=== PATIENT | male | born 1955 | race Caucasian/White ===

== ENCOUNTER 2016-07-07 23:27 | Emergency (ER) | payer OTHER ==
[~2016-07-07] VITALS: Ht 185.4 cm; Wt 175.0 kg
[~2016-07-07 23:27] MED LIST: ACETAMINOPHEN500 MG PO; ASPIR-LOW81 MG PO; COUMADIN5 MG PO; ENALAPRIL MALEA10 MG PO; ENALAPRIL MALEA20 MG PO; FOCALIN5 MG PO; FUROSEMIDE40 MG PO; GLIPIZIDE10 MG PO; LANTUS 10100 UNITS/ SC; LANTUS 3 M100 UNITS1 SC; LASIX40 MG PO; LEVAQUIN750 MG PO; METFORMIN HCL500 MG PO; METOPROLOL TART25 MG PO; OMEPRAZOLE20 MG PO; PACERONE200 MG PO; PERCOCET 5/31 TABLET PO; PLAVIX75 MG PO; PRAVASTATIN SOD80 MG PO; SPIRIVA1 INHALATI IH; SYMBICORT60 INHALAT IH; TEMAZEPAM30 MG PO; TRAMADOL HCL50 MG PO; TRAZODONE HCL100 MG PO; WARFARIN SODIUM5 MG PO
[2016-07-08 00:38] LABS: HEMATOCRIT 40.6 % (38.0-50.0); MCHC 32.8 G/DL (30.0-36.0); MCV 85.5 FL (86-99); PLATELET COUNT 189 K/uL (156-360); RBC DIS.WIDTH-CV 13.7 % (11.8-14.6); RBC DIS.WIDTH-SD 42.2 % (39-53); RED BLOOD COUNT 4.75 M/uL (4.00-5.50); WHITE BLOOD COUNT 6.8 K/uL (4.1-10.2)
[2016-07-08 00:49] LABS: CHLORIDE 102 mEq/L (99-109); POTASSIUM 4.3 mEq/L (3.7-5.4); SODIUM 137 mEq/L (136-147)
[2016-07-08 00:50] LABS: GLUCOSE 178 mg/dL (70-99)
[2016-07-08 00:52] LABS: ANION GAP 7 MEQ/L (2-14)
[2016-07-08 00:54] LABS: D-DIMER ELISA 1.24 mg/L FEU (< 0.57); GFR ESTIMATE (CALCULATED) > 59 mL/min/; INTER. NORMALIZED RATIO 2.3; PROTHROMBIN TIME 23.6 (9.2-11.2); PTT 37.4 (25-32)
[2016-07-08 00:55] LABS: UREA NITROGEN (BUN) 9 mg/dL (9-23)
[2016-07-08 01:02] LABS: TROP-I INTERPRETATION NEGATIVE; TROPONIN-I < 0.01 ng/mL (0.0-0.30)
[2016-07-08 02:20] LABS: INFLUENZA A VIRAL ANTIGEN NEGATIVE; INFLUENZA B VIRAL ANTIGEN NEGATIVE
[2016-07-08 02:23] LABS: ADD MIUA? YES; BILIRUBIN NEGATIVE; BLOOD TRACE; COLOR YELLOW ((YELLOW)); GLUCOSE (STRIP) 100; KETONES NEGATIVE; LEUKOCYTES NEGATIVE; NITRITE NEGATIVE; PROTEIN (STRIP) >=300; SPECIFIC GRAVITY 1.016 (1.000-1.030)
[2016-07-08 02:36] LABS: BACTERIA NONE SEEN; CASTS NONE SEEN /LPF; CRYSTALS NONE SEEN; EPITHELIAL CELLS RARE; MUCUS NONE SEEN; RED BLOOD CELLS 0-5 /HPF (0-5); UCUL ADDED? NO; WHITE BLOOD CELLS RARE /HPF (0-5)
[2016-07-08 06:30] VITALS: BP 116/59
== END 2016-07-08 07:37 | disposition short-term general hospital (02) ==
LOC: EME → EDBD 23:27 → EME 07-08 07:37
PROVIDERS: Emergency Medicine
DX: J44.0 Chronic obstructive pulmonary disease with (acute) lower respiratory infection (principal); J44.1 Chronic obstructive pulmonary disease with (acute) exacerbation; J20.9 Acute bronchitis, unspecified; E11.9 Type 2 diabetes mellitus without complications; F17.200 Nicotine dependence, unspecified, uncomplicated; E78.5 Hyperlipidemia, unspecified; I11.0 Hypertensive heart disease with heart failure; I25.2 Old myocardial infarction; I50.9 Heart failure, unspecified; Z95.1 Presence of aortocoronary bypass graft; Z88.6 Allergy status to analgesic agent
CPT/HCPCS: 71020; 71275; 80048; 81003; 83605; 83880; 84484; 85027; 85379; 85610; 85730; 87040; 87502; 93005; 94640; 94640 76; 99281; 99284; J1956; J2930

== ENCOUNTER 2016-11-08 21:46 | Observation (INO) | payer OTHER ==
[~2016-11-08] VITALS: Ht 185.4 cm; Wt 173.6 kg
[2016-11-08 22:17] LABS: HEMATOCRIT 41.1 % (38.0-50.0); MCH 27.3 PG (29.0-34.0); MCHC 32.6 G/DL (30.0-36.0); MCV 83.9 FL (86-99); MEAN PLAT.VOLUME 9.8 uM^3 (9.0-12.4); PLATELET COUNT 224 K/uL (156-360); RBC DIS.WIDTH-CV 13.8 % (11.8-14.6); RBC DIS.WIDTH-SD 42.3 % (39-53); WHITE BLOOD COUNT 7.7 K/uL (4.1-10.2)
[2016-11-08 22:29] LABS: CHLORIDE 103 mEq/L (99-109); POTASSIUM 4.3 mEq/L (3.7-5.4); SODIUM 139 mEq/L (136-147)
[2016-11-08 22:31] LABS: GLUCOSE 182 mg/dL (70-99)
[2016-11-08 22:32] LABS: ANION GAP 11 MEQ/L (2-14)
[2016-11-08 22:35] LABS: GFR ESTIMATE (CALCULATED) > 59 mL/min/
[2016-11-08 22:36] LABS: UREA NITROGEN (BUN) 10 mg/dL (9-23)
[2016-11-08 22:39] LABS: TROP-I INTERPRETATION NEGATIVE; TROPONIN-I 0.01 ng/mL (0.0-0.30)
[2016-11-08 23:47] LABS: INTER. NORMALIZED RATIO 2.8; PROTHROMBIN TIME 29.9 (9.2-11.2)
[2016-11-09] MEDS ORDERED: CYANOCOBALAM1000 MCG PO (00:03)
[2016-11-09] MEDS ORDERED: LO-DOSE ASPIRIN81 M2 PO (00:03)
[2016-11-09] MEDS ORDERED: TAMSULOSIN HCL0.4 MG PO (00:04)
[2016-11-09 00:28] LABS: D-DIMER ELISA 0.58 mg/L FEU (< 0.57)
[2016-11-09 02:14] LABS: TOTAL BILIRUBIN 0.2 mg/dL (0.0-1.0)
[2016-11-09 02:15] LABS: ALKALINE PHOSPHATASE 62 IU/L (3-129)
[2016-11-09 02:18] LABS: DIRECT BILIRUBIN 0.1 mg/dL (0.0-0.3)
[2016-11-09 02:19] LABS: LIPASE 20 U/L (1.0-51.0)
[2016-11-09 02:20] VITALS: BP 130/66
[2016-11-09 03:55] LABS: POINT-OF-CARE METER ID UU14174216
[2016-11-09 06:08] LABS: HEMATOCRIT 39.8 % (38.0-50.0); MCH 26.7 PG (29.0-34.0); MCHC 31.4 G/DL (30.0-36.0); MCV 84.9 FL (86-99); MEAN PLAT.VOLUME 9.9 uM^3 (9.0-12.4); PLATELET COUNT 224 K/uL (156-360); RBC DIS.WIDTH-CV 13.8 % (11.8-14.6); RBC DIS.WIDTH-SD 42.9 % (39-53); RED BLOOD COUNT 4.69 M/uL (4.00-5.50); WHITE BLOOD COUNT 7.5 K/uL (4.1-10.2)
[2016-11-09 06:37] LABS: TROP-I INTERPRETATION NEGATIVE; TROPONIN-I 0.02 ng/mL (0.0-0.30)
[2016-11-09 06:40] LABS: ANION GAP 9 MEQ/L (2-14); CHLORIDE 99 MEQ/L (99-109); GFR ESTIMATE (CALCULATED) > 59 mL/min/; GLUCOSE 352 mg/dL (70-99); POTASSIUM 5.1 MEQ/L (3.7-5.4); SAMPLE HEMOLYSIS CHECK 0; SAMPLE ICTERIC CHECK 0; SAMPLE LIPEMIA CHECK 0; SODIUM 137 MEQ/L (136-147); UREA NITROGEN (BUN) 13 mg/dL (9-23)
[2016-11-09 07:29] LABS: POINT-OF-CARE METER ID UU13113781
[2016-11-09 08:15] VITALS: BP 139/62
[2016-11-09 08:34] VITALS: BP 122/56
[2016-11-09 11:10] LABS: POINT-OF-CARE METER ID UU13113781
[2016-11-09 11:49] LABS: TROP-I INTERPRETATION NEGATIVE; TROPONIN-I < 0.01 ng/mL (0.0-0.30)
[2016-11-09 12:04] VITALS: BP 158/70
[2016-11-09 15:30] VITALS: BP 129/60
== END 2016-11-09 15:30 | disposition home or self-care (01) ==
LOC: EME → EDBD 21:46 → EDOF 11-09 01:12 → 4EAST 11-09 01:12 → EDOF 11-09 01:12 → 4EAST 11-09 02:20
PROVIDERS: Emergency Medicine; Hospitalist; Internal Medicine
DX: R07.89 Other chest pain (principal); I25.10 Atherosclerotic heart disease of native coronary artery without angina pectoris; Z95.1 Presence of aortocoronary bypass graft; I25.2 Old myocardial infarction; I48.0 Paroxysmal atrial fibrillation; Z79.01 Long term (current) use of anticoagulants; I10 Essential (primary) hypertension; E66.01 Morbid (severe) obesity due to excess calories; G47.30 Sleep apnea, unspecified; G89.4 Chronic pain syndrome; G43.909 Migraine, unspecified, not intractable, without status migrainosus; E78.5 Hyperlipidemia, unspecified; J44.9 Chronic obstructive pulmonary disease, unspecified; F17.200 Nicotine dependence, unspecified, uncomplicated; Z68.43 Body mass index [BMI] 50.0-59.9, adult; Z96.651 Presence of right artificial knee joint
CPT/HCPCS: 71020; 71275; 80048; 80076; 82948; 83690; 83880; 84484; 85027; 85379; 85610; 93005; 94640; 94644; 94799; 99281; 99285; G0378; J1815; J1940; J2270; J2405; J2930

== ENCOUNTER 2017-01-30 22:55 | Observation (INO) | payer OTHER ==
[~2017-01-30] VITALS: Ht 185.4 cm; Wt 170.5 kg
[~2017-01-30 22:55] MED LIST changes: +CYANOCOBALAM1000 MCG PO; +LO-DOSE ASPIRIN81 M2 PO; +TAMSULOSIN HCL0.4 MG PO
[2017-01-30 23:31] LABS: HEMATOCRIT 34.8 % (38.0-50.0); MCH 26.7 PG (29.0-34.0); MCHC 31.6 G/DL (30.0-36.0); MCV 84.5 FL (86-99); MEAN PLAT.VOLUME 9.9 uM^3 (9.0-12.4); PLATELET COUNT 183 K/uL (156-360); RBC DIS.WIDTH-CV 14.5 % (11.8-14.6); RBC DIS.WIDTH-SD 44.4 % (39-53); RED BLOOD COUNT 4.12 M/uL (4.00-5.50); WHITE BLOOD COUNT 7.2 K/uL (4.1-10.2)
[2017-01-30 23:43] LABS: CHLORIDE 104 mEq/L (99-109); POTASSIUM 4.1 mEq/L (3.7-5.4); SODIUM 140 mEq/L (136-147)
[2017-01-30 23:45] LABS: GLUCOSE 153 mg/dL (70-99)
[2017-01-30 23:46] LABS: ANION GAP 9 MEQ/L (2-14)
[2017-01-30 23:48] LABS: GFR ESTIMATE (CALCULATED) > 59 mL/min/
[2017-01-30 23:49] LABS: UREA NITROGEN (BUN) 10 mg/dL (9-23)
[2017-01-31 00:08] LABS: TROP-I INTERPRETATION NEGATIVE; TROPONIN-I < 0.01 ng/mL (0.0-0.30)
[2017-01-31 06:53] LABS: TROP-I INTERPRETATION NEGATIVE; TROPONIN-I 0.02 ng/mL (0.0-0.30)
[2017-01-31 07:20] VITALS: BP 190/82
[2017-01-31 08:27] LABS: INTER. NORMALIZED RATIO 1.4; PROTHROMBIN TIME 15.9 SEC (10.2-12.9)
[2017-01-31 11:41] VITALS: BP 133/97
[2017-01-31 12:24] LABS: POINT-OF-CARE METER ID UU14162513
[2017-01-31 12:43] LABS: TROP-I INTERPRETATION NEGATIVE; TROPONIN-I 0.02 ng/mL (0.0-0.30)
[2017-01-31 15:28] VITALS: BP 112/54
[2017-01-31 17:04] LABS: POINT-OF-CARE METER ID UU14162513
[2017-01-31 19:40] VITALS: BP 135/60
[2017-01-31 21:32] LABS: POINT-OF-CARE METER ID UU14162513
[2017-01-31 23:29] VITALS: BP 124/59
[2017-02-01 04:45] VITALS: BP 142/71
[2017-02-01 06:16] LABS: HEMATOCRIT 31.8 % (38.0-50.0); MCH 27.7 PG (29.0-34.0); MCHC 32.7 G/DL (30.0-36.0); MCV 84.8 FL (86-99); MEAN PLAT.VOLUME 9.9 uM^3 (9.0-12.4); PLATELET COUNT 191 K/uL (156-360); RBC DIS.WIDTH-CV 14.5 % (11.8-14.6); RBC DIS.WIDTH-SD 44.2 % (39-53); RED BLOOD COUNT 3.75 M/uL (4.00-5.50); WHITE BLOOD COUNT 7.1 K/uL (4.1-10.2)
[2017-02-01 06:18] LABS: INTER. NORMALIZED RATIO 1.4
[2017-02-01 06:38] LABS: ANION GAP 8 MEQ/L (2-14); CHLORIDE 100 MEQ/L (99-109); GFR ESTIMATE (CALCULATED) > 59 mL/min/; GLUCOSE 124 mg/dL (70-99); POTASSIUM 3.7 MEQ/L (3.7-5.4); SAMPLE HEMOLYSIS CHECK 0; SAMPLE ICTERIC CHECK 0; SAMPLE LIPEMIA CHECK 0; SODIUM 141 MEQ/L (136-147); UREA NITROGEN (BUN) 11 mg/dL (9-23)
[2017-02-01 06:58] LABS: TROP-I INTERPRETATION NEGATIVE; TROPONIN-I 0.02 ng/mL (0.0-0.30)
[2017-02-01 07:19] VITALS: BP 150/63
[2017-02-01 08:28] LABS: POINT-OF-CARE METER ID UU13113831
[2017-02-01 11:38] VITALS: BP 131/63
[2017-02-01] MEDS ORDERED: FUROSEMIDE40 MG PO (11:55)
== END 2017-02-01 14:59 | disposition home or self-care (01) ==
LOC: EME 22:55 → EDOF 01-31 04:26 → 5WEST 01-31 04:26 → EDOF 01-31 04:26 → ENRESERV 01-31 04:31 → 5WEST 01-31 07:07
PROVIDERS: Emergency Medicine; Hospitalist; Internal Medicine; Nurse Practitioner Family
DX: R06.02 Shortness of breath (principal); R07.9 Chest pain, unspecified; I10 Essential (primary) hypertension; I48.0 Paroxysmal atrial fibrillation; R05 Cough; E11.9 Type 2 diabetes mellitus without complications; I25.10 Atherosclerotic heart disease of native coronary artery without angina pectoris; Z95.1 Presence of aortocoronary bypass graft; E78.5 Hyperlipidemia, unspecified; Z82.49 Family history of ischemic heart disease and other diseases of the circulatory system; F17.210 Nicotine dependence, cigarettes, uncomplicated; Z79.01 Long term (current) use of anticoagulants; Z79.4 Long term (current) use of insulin; Z79.82 Long term (current) use of aspirin; Z83.3 Family history of diabetes mellitus; Z88.5 Allergy status to narcotic agent; Z88.6 Allergy status to analgesic agent
CPT/HCPCS: 71020; 80048; 82948; 83735; 83880; 84484; 85027; 85610; 93005; 93306; 94640; 94640 76; 94799; 99281; 99285; G0378; J1815; J1885; J1940; J2270

== ENCOUNTER 2017-02-09 20:28 | Inpatient (IN) | payer OTHER ==
[~2017-02-09] VITALS: Ht 182.9 cm; Wt 172.0 kg
[2017-02-09 21:07] LABS: HEMATOCRIT 33.1 % (38.0-50.0); MCH 26.9 PG (29.0-34.0); MEAN PLAT.VOLUME 9.7 uM^3 (9.0-12.4); PLATELET COUNT 242 K/uL (156-360); RBC DIS.WIDTH-CV 14.4 % (11.8-14.6); RBC DIS.WIDTH-SD 44.5 % (39-53); RED BLOOD COUNT 3.94 M/uL (4.00-5.50); WHITE BLOOD COUNT 7.5 K/uL (4.1-10.2)
[2017-02-09 21:18] LABS: CHLORIDE 100 mEq/L (99-109); POTASSIUM 4.6 mEq/L (3.7-5.4); SODIUM 137 mEq/L (136-147)
[2017-02-09 21:19] LABS: GLUCOSE 135 mg/dL (70-99)
[2017-02-09 21:21] LABS: ANION GAP 8 MEQ/L (2-14)
[2017-02-09 21:23] LABS: GFR ESTIMATE (CALCULATED) > 59 mL/min/
[2017-02-09 21:24] LABS: UREA NITROGEN (BUN) 12 mg/dL (9-23)
[2017-02-09 21:31] LABS: TROP-I INTERPRETATION NEGATIVE; TROPONIN-I < 0.01 ng/mL (0.0-0.30)
[2017-02-09] MEDS ORDERED: GLUCOPHAGE500 MG PO (22:51)
[2017-02-09] MEDS ORDERED: GLIPIZIDE5 MG PO (22:52)
[2017-02-10 00:37] LABS: INTER. NORMALIZED RATIO 3.4; PROTHROMBIN TIME 38.8 SEC (10.2-12.9); PTT 42.5 SEC (25-37)
[2017-02-10 01:26] VITALS: BP 182/82
[2017-02-10 01:50] LABS: POINT-OF-CARE METER ID UU14162513
[2017-02-10 02:19] LABS: TOTAL BILIRUBIN 0.2 mg/dL (0.0-1.0)
[2017-02-10 02:20] LABS: ALKALINE PHOSPHATASE 67 IU/L (3-129)
[2017-02-10 02:22] LABS: DIRECT BILIRUBIN 0.1 mg/dL (0.0-0.3)
[2017-02-10 02:23] LABS: LIPASE 22 U/L (1.0-51.0)
[2017-02-10 03:00] LABS: HEMATOCRIT 32.4 % (38.0-50.0); MCH 26.5 PG (29.0-34.0); MCHC 31.8 G/DL (30.0-36.0); MCV 83.5 FL (86-99); MEAN PLAT.VOLUME 9.7 uM^3 (9.0-12.4); PLATELET COUNT 223 K/uL (156-360); RBC DIS.WIDTH-CV 14.4 % (11.8-14.6); RBC DIS.WIDTH-SD 43.8 % (39-53); RED BLOOD COUNT 3.88 M/uL (4.00-5.50); WHITE BLOOD COUNT 7.9 K/uL (4.1-10.2)
[2017-02-10 03:20] LABS: CHLORIDE 100 mEq/L (99-109); SODIUM 136 mEq/L (136-147)
[2017-02-10 03:21] LABS: GLUCOSE 154 mg/dL (70-99)
[2017-02-10 03:23] LABS: ANION GAP 9 MEQ/L (2-14)
[2017-02-10 03:24] LABS: TROP-I INTERPRETATION NEGATIVE; TROPONIN-I < 0.01 ng/mL (0.0-0.30)
[2017-02-10 03:25] LABS: GFR ESTIMATE (CALCULATED) > 59 mL/min/
[2017-02-10 03:26] LABS: UREA NITROGEN (BUN) 12 mg/dL (9-23)
[2017-02-10 04:46] VITALS: BP 146/92
[2017-02-10 07:34] VITALS: BP 138/83
[2017-02-10 08:17] LABS: POINT-OF-CARE METER ID UU14162513
[2017-02-10 09:32] LABS: INTER. NORMALIZED RATIO 2.8; PROTHROMBIN TIME 32.6 SEC (10.2-12.9)
[2017-02-10 09:47] LABS: TROP-I INTERPRETATION NEGATIVE; TROPONIN-I 0.01 ng/mL (0.0-0.30)
[2017-02-10 12:00] VITALS: BP 141/64
[2017-02-10 13:16] LABS: POINT-OF-CARE METER ID UU14162513
[2017-02-10] MEDS ORDERED: FURO40I IV (14:23)
[2017-02-10 16:25] VITALS: BP 182/77
[2017-02-10 17:51] LABS: POINT-OF-CARE METER ID UU14162513
== END 2017-02-10 20:41 | disposition short-term general hospital (02) | DRG 292 ==
LOC: EME → EDBD 20:28 → EDOF 23:47 → ENRESERV 23:49 → EDOF 02-10 00:46 → 5WEST 02-10 00:50 → ENRESERV 02-10 10:29 → CANRESERV 02-10 14:53 → ENRESERV 02-10 14:53 → 5WEST 02-10 20:41
PROVIDERS: Emergency Medicine; Hospitalist
DX: I11.0 Hypertensive heart disease with heart failure (principal); I50.9 Heart failure, unspecified; Z68.43 Body mass index [BMI] 50.0-59.9, adult; R07.9 Chest pain, unspecified; R09.02 Hypoxemia; J44.9 Chronic obstructive pulmonary disease, unspecified; E11.9 Type 2 diabetes mellitus without complications; E66.01 Morbid (severe) obesity due to excess calories; I25.10 Atherosclerotic heart disease of native coronary artery without angina pectoris; E78.5 Hyperlipidemia, unspecified; G89.4 Chronic pain syndrome; F17.200 Nicotine dependence, unspecified, uncomplicated; G47.33 Obstructive sleep apnea (adult) (pediatric); I48.0 Paroxysmal atrial fibrillation; I45.9 Conduction disorder, unspecified; I89.0 Lymphedema, not elsewhere classified; Z79.01 Long term (current) use of anticoagulants; Z79.82 Long term (current) use of aspirin; Z95.1 Presence of aortocoronary bypass graft; Z88.6 Allergy status to analgesic agent; Z79.4 Long term (current) use of insulin; Z79.51 Long term (current) use of inhaled steroids; Z79.899 Other long term (current) drug therapy
CPT/HCPCS: 71020; 80048; 80048 91; 80076; 82948; 83690; 83880; 84484; 85027; 85610; 85730; 93005; 94640; 94640 76; 94799; 99281; 99285; G0378; J1815; J1940; J7644

== ENCOUNTER 2017-02-15 00:25 | Emergency (ER) | payer OTHER ==
[~2017-02-15] VITALS: Ht 185.4 cm; Wt 168.4 kg
[~2017-02-15 00:25] MED LIST changes: +FURO40I IV; +GLIPIZIDE5 MG PO; +GLUCOPHAGE500 MG PO
[2017-02-15 01:47] LABS: MCH 26.7 PG (29.0-34.0); MCHC 32.5 G/DL (30.0-36.0); MEAN PLAT.VOLUME 9.7 uM^3 (9.0-12.4); PLATELET COUNT 272 K/uL (156-360); RBC DIS.WIDTH-CV 14.1 % (11.8-14.6); RBC DIS.WIDTH-SD 41.6 % (39-53); RED BLOOD COUNT 4.39 M/uL (4.00-5.50); WHITE BLOOD COUNT 8.1 K/uL (4.1-10.2)
[2017-02-15 01:53] LABS: INTER. NORMALIZED RATIO 2.1; PROTHROMBIN TIME 23.4 SEC (10.2-12.9)
[2017-02-15 01:55] LABS: CHLORIDE 99 mEq/L (99-109); POTASSIUM 3.9 mEq/L (3.7-5.4); SODIUM 138 mEq/L (136-147)
[2017-02-15 01:58] LABS: GLUCOSE 201 mg/dL (70-99)
[2017-02-15 01:59] LABS: ANION GAP 11 MEQ/L (2-14)
[2017-02-15 02:00] LABS: TOTAL BILIRUBIN 0.3 mg/dL (0.0-1.0)
[2017-02-15 02:01] LABS: ALKALINE PHOSPHATASE 67 IU/L (3-129); GFR ESTIMATE (CALCULATED) > 59 mL/min/
[2017-02-15 02:06] LABS: UREA NITROGEN (BUN) 23 mg/dL (9-23)
[2017-02-15 02:09] LABS: TROP-I INTERPRETATION NEGATIVE; TROPONIN-I 0.04 ng/mL (0.0-0.30)
[2017-02-15 03:15] VITALS: BP 145/70
[2017-02-15 03:19] LABS: ADD MIUA? YES; BILIRUBIN NEGATIVE; BLOOD NEGATIVE; COLOR AMBER ((YELLOW)); GLUCOSE (STRIP) 50; KETONES NEGATIVE; LEUKOCYTES NEGATIVE; NITRITE NEGATIVE; PROTEIN (STRIP) >=500
[2017-02-15 03:33] LABS: AMORPHOUS URATES CRYSTALS 3+; CRYSTALS PRESENT; EPITHELIAL CELLS 1+ /HPF; RED BLOOD CELLS NONE SEEN /HPF (0-5); UCUL ADDED? YES; WHITE BLOOD CELLS NONE SEEN /HPF (0-5)
== END 2017-02-15 04:44 | disposition home or self-care (01) ==
LOC: EME 00:25
PROVIDERS: Emergency Medicine
DX: R53.1 Weakness (principal); I25.2 Old myocardial infarction; I11.0 Hypertensive heart disease with heart failure; I50.9 Heart failure, unspecified; J44.9 Chronic obstructive pulmonary disease, unspecified; E78.5 Hyperlipidemia, unspecified; E11.9 Type 2 diabetes mellitus without complications; Z79.4 Long term (current) use of insulin; Z79.01 Long term (current) use of anticoagulants; Z95.1 Presence of aortocoronary bypass graft; F17.200 Nicotine dependence, unspecified, uncomplicated
CPT/HCPCS: 71010; 80053; 81003; 83605; 83880; 84484; 85027; 85610; 85730; 87040; 87086; 99281; 99285; J7040

== ENCOUNTER 2017-02-17 22:37 | Observation (INO) | payer OTHER ==
[~2017-02-17] VITALS: Ht 185.4 cm; Wt 167.0 kg
[2017-02-17 23:30] LABS: POINT-OF-CARE METER ID UU14100415
[2017-02-18 00:25] LABS: HEMATOCRIT 34.8 % (38.0-50.0); MCH 27.1 PG (29.0-34.0); MCV 81.9 FL (86-99); MEAN PLAT.VOLUME 9.7 uM^3 (9.0-12.4); PLATELET COUNT 247 K/uL (156-360); RBC DIS.WIDTH-CV 14.7 % (11.8-14.6); RED BLOOD COUNT 4.25 M/uL (4.00-5.50); WHITE BLOOD COUNT 7.8 K/uL (4.1-10.2)
[2017-02-18 00:37] LABS: CHLORIDE 101 mEq/L (99-109); POTASSIUM 3.6 mEq/L (3.7-5.4); SODIUM 137 mEq/L (136-147)
[2017-02-18 00:39] LABS: GLUCOSE 179 mg/dL (70-99)
[2017-02-18 00:40] LABS: ANION GAP 12 MEQ/L (2-14)
[2017-02-18 00:43] LABS: GFR ESTIMATE (CALCULATED) > 59 mL/min/; UREA NITROGEN (BUN) 28 mg/dL (9-23)
[2017-02-18 00:51] LABS: TROP-I INTERPRETATION NEGATIVE; TROPONIN-I 0.22 ng/mL (0.0-0.30)
[2017-02-18 00:53] LABS: INTER. NORMALIZED RATIO 2.2
[2017-02-18 00:56] LABS: PTT 36.1 SEC (25-37)
[2017-02-18 06:49] VITALS: BP 144/78
[2017-02-18 07:23] LABS: TROP-I INTERPRETATION NEGATIVE; TROPONIN-I 0.26 ng/mL (0.0-0.30)
[2017-02-18 07:25] VITALS: BP 144/78
[2017-02-18 08:31] LABS: POINT-OF-CARE METER ID UU13113700
[2017-02-18 11:37] LABS: POINT-OF-CARE METER ID UU13113831
[2017-02-18 11:39] VITALS: BP 125/96
[2017-02-18 15:11] LABS: INTER. NORMALIZED RATIO 2.4; PROTHROMBIN TIME 26.8 SEC (10.2-12.9)
[2017-02-18 15:32] LABS: TROP-I INTERPRETATION NEGATIVE; TROPONIN-I 0.19 ng/mL (0.0-0.30)
== END 2017-02-18 16:45 | disposition home or self-care (01) ==
LOC: EME 22:37 → EDOF 02-18 04:57 → ENRESERV 02-18 05:08 → 5WEST 02-18 06:11
PROVIDERS: Hospitalist; Physician Assistant Medical
DX: R07.89 Other chest pain (principal); I25.10 Atherosclerotic heart disease of native coronary artery without angina pectoris; I48.92 Unspecified atrial flutter; I48.0 Paroxysmal atrial fibrillation; Z79.01 Long term (current) use of anticoagulants; J44.9 Chronic obstructive pulmonary disease, unspecified; B88.8 Other specified infestations; E66.01 Morbid (severe) obesity due to excess calories; Z68.43 Body mass index [BMI] 50.0-59.9, adult; G47.33 Obstructive sleep apnea (adult) (pediatric); E11.9 Type 2 diabetes mellitus without complications; F17.210 Nicotine dependence, cigarettes, uncomplicated; I95.9 Hypotension, unspecified; I87.8 Other specified disorders of veins; Z88.5 Allergy status to narcotic agent; Z88.6 Allergy status to analgesic agent; Z88.8 Allergy status to other drugs, medicaments and biological substances; Z79.82 Long term (current) use of aspirin; Z79.4 Long term (current) use of insulin; Z95.1 Presence of aortocoronary bypass graft; I25.2 Old myocardial infarction; E86.0 Dehydration
CPT/HCPCS: 71020; 80048; 81003; 82948; 83735; 83880; 84484; 85027; 85610; 85730; 93005; 94640; 99202; 99281; 99285; G0378; J1815; J7030

== ENCOUNTER 2017-03-30 21:26 | Emergency (ER) | payer OTHER ==
[~2017-03-30] VITALS: Ht 185.4 cm; Wt 166.8 kg
[2017-03-30 22:00] LABS: MCH 24.8 PG (29.0-34.0); MCV 79.9 FL (86-99); MEAN PLAT.VOLUME 9.2 uM^3 (9.0-12.4); PLATELET COUNT 292 K/uL (156-360); RBC DIS.WIDTH-CV 15.8 % (11.8-14.6); RED BLOOD COUNT 3.63 M/uL (4.00-5.50); WHITE BLOOD COUNT 8.1 K/uL (4.1-10.2)
[2017-03-30 22:10] LABS: CHLORIDE 103 mEq/L (99-109); POTASSIUM 4.6 mEq/L (3.7-5.4); SODIUM 136 mEq/L (136-147)
[2017-03-30 22:12] LABS: GLUCOSE 223 mg/dL (70-99)
[2017-03-30 22:14] LABS: ANION GAP 10 MEQ/L (2-14)
[2017-03-30 22:16] LABS: GFR ESTIMATE (CALCULATED) > 59 mL/min/
[2017-03-30 22:17] LABS: UREA NITROGEN (BUN) 14 mg/dL (9-23)
[2017-03-31 01:53] VITALS: BP 119/54
== END 2017-03-31 02:13 | disposition home or self-care (01) ==
LOC: EME 21:26
DX: J06.9 Acute upper respiratory infection, unspecified (principal); M19.90 Unspecified osteoarthritis, unspecified site; F17.200 Nicotine dependence, unspecified, uncomplicated; E11.9 Type 2 diabetes mellitus without complications; Z79.4 Long term (current) use of insulin; J44.9 Chronic obstructive pulmonary disease, unspecified; E78.5 Hyperlipidemia, unspecified; I11.0 Hypertensive heart disease with heart failure; I50.9 Heart failure, unspecified; I25.2 Old myocardial infarction; K21.9 Gastro-esophageal reflux disease without esophagitis; Z95.1 Presence of aortocoronary bypass graft; E66.9 Obesity, unspecified; Z79.01 Long term (current) use of anticoagulants; Z88.8 Allergy status to other drugs, medicaments and biological substances
CPT/HCPCS: 71020; 80048; 85027; 93005; 99281; 99283

== ENCOUNTER 2017-06-11 22:50 | Inpatient (IN) | payer OTHER ==
[~2017-06-11] VITALS: Ht 185.4 cm; Wt 170.9 kg
[~2017-06-11 22:50] MED LIST changes: +AMBIEN5 MG PO; +LASIX20 MG PO; +NICOTINE PATCH1 EAC1 TD; +PRAVACHOL40 MG PO; -PRAVASTATIN SOD80 MG PO; +PROAIR RESPICL90 MCG IH; +SPIRONOLACTONE25 MG PO
[2017-06-12 00:55] LABS: MCH 23.7 PG (29.0-34.0); MCV 76.3 FL (86-99); MEAN PLAT.VOLUME 9.1 uM^3 (9.0-12.4); PLATELET COUNT 322 K/uL (156-360); RBC DIS.WIDTH-CV 20.4 % (11.8-14.6); RBC DIS.WIDTH-SD 56.3 % (39-53); RED BLOOD COUNT 3.93 M/uL (4.00-5.50); WHITE BLOOD COUNT 7.3 K/uL (4.1-10.2)
[2017-06-12 00:58] LABS: MONOCYTE (%) 6.5 % (3-12); NEUTROPHIL (%) 64.4 % (45-76)
[2017-06-12 00:59] LABS: EOSINOPHIL (%) 2.9 % (0-5); EOSINOPHIL COUNT 0.2 K/uL (0-0.3); IMMATURE GRANULOCYTE (%) 0.4 % (0.0-0.7); INSTRUMENT ABS NEUTROPHIL CT 4.7 K/uL; LYMPHOCYTE COUNT 1.9 K/uL (1.0-2.8); MONOCYTE COUNT 0.5 K/uL (0-0.8); NEUTROPHIL COUNT 4.7 K/uL (1.8-6.4)
[2017-06-12 01:17] LABS: TROP-I INTERPRETATION NEGATIVE; TROPONIN-I 0.07 ng/mL (0.0-0.30)
[2017-06-12 01:22] LABS: CHLORIDE 101 mEq/L (99-109); POTASSIUM 4.1 mEq/L (3.7-5.4); SODIUM 137 mEq/L (136-147)
[2017-06-12 01:24] LABS: GLUCOSE 112 mg/dL (70-99)
[2017-06-12 01:25] LABS: ANION GAP 9 MEQ/L (2-14)
[2017-06-12 01:28] LABS: GFR ESTIMATE (CALCULATED) > 59 mL/min/ (58.99-99999)
[2017-06-12 01:29] LABS: UREA NITROGEN (BUN) 15 mg/dL (9-23)
[2017-06-12 02:16] LABS: INTER. NORMALIZED RATIO 1.9; PROTHROMBIN TIME 21.9 SEC (10.2-12.9)
[2017-06-12 02:18] LABS: PTT 32.4 SEC (25-37)
[2017-06-12 03:26] LABS: ADD MIUA? YES; BILIRUBIN NEGATIVE; BLOOD SMALL; COLOR YELLOW ((YELLOW)); GLUCOSE (STRIP) NEGATIVE; KETONES NEGATIVE; LEUKOCYTES NEGATIVE; NITRITE NEGATIVE; PROTEIN (STRIP) 100; SPECIFIC GRAVITY 1.018 (1.000-1.030)
[2017-06-12 03:31] LABS: BACTERIA RARE /HPF; EPITHELIAL CELLS NONE SEEN /HPF; HYALINE CASTS 0-5 /LPF; MUCUS TRACE /LPF; UCUL ADDED? NO; WHITE BLOOD CELLS 0-5 /HPF (0-5)
[2017-06-12 04:19] VITALS: BP 116/60
[2017-06-12 08:17] LABS: POINT-OF-CARE METER ID UU14162513
[2017-06-12 08:18] VITALS: BP 108/50
[2017-06-12 12:05] VITALS: BP 138/68
[2017-06-12 15:02] LABS: INTER. NORMALIZED RATIO 1.6; PROTHROMBIN TIME 18.8 SEC (10.2-12.9)
[2017-06-12] MEDS ORDERED: AMBIEN10 MG PO (15:14)
[2017-06-12] MEDS ORDERED: GLUCOTROL10 MG PO (15:14)
[2017-06-12 15:18] LABS: IRON 22 MCG/DL (35-150)
[2017-06-12 15:22] LABS: TROP-I INTERPRETATION NEGATIVE; TROPONIN-I 0.05 ng/mL (0.0-0.30)
[2017-06-12 17:33] VITALS: BP 139/69
[2017-06-12 20:00] VITALS: BP 100/52
[2017-06-12 20:05] LABS: POINT-OF-CARE METER ID UU14162513
[2017-06-13 00:35] VITALS: BP 100/52
[2017-06-13 05:14] VITALS: BP 100/87
[2017-06-13 05:43] LABS: HEMATOCRIT 28.5 % (38.0-50.0); MCH 23.8 PG (29.0-34.0); MCHC 30.9 G/DL (30.0-36.0); MEAN PLAT.VOLUME 9.3 uM^3 (9.0-12.4); PLATELET COUNT 283 K/uL (156-360); RBC DIS.WIDTH-CV 20.6 % (11.8-14.6); RBC DIS.WIDTH-SD 57.2 % (39-53); WHITE BLOOD COUNT 6.6 K/uL (4.1-10.2)
[2017-06-13 06:06] LABS: ANION GAP 8 MEQ/L (2-14); CHLORIDE 103 MEQ/L (99-109); GFR ESTIMATE (CALCULATED) > 59 mL/min/ (58.99-99999); GLUCOSE 94 mg/dL (70-99); POTASSIUM 4.1 MEQ/L (3.7-5.4); SAMPLE HEMOLYSIS CHECK 0; SAMPLE ICTERIC CHECK 0; SAMPLE LIPEMIA CHECK 0; SODIUM 140 MEQ/L (136-147); UREA NITROGEN (BUN) 10 mg/dL (9-23)
[2017-06-13 09:12] VITALS: BP 126/59
[2017-06-13 12:19] VITALS: BP 116/53
[2017-06-13 15:04] LABS: INTER. NORMALIZED RATIO 1.4; PROTHROMBIN TIME 16.6 SEC (10.2-12.9)
[2017-06-13 16:36] VITALS: BP 117/58
[2017-06-13 20:00] VITALS: BP 112/64
[2017-06-14] VITALS (7 sets, daily range): BP systolic 100–133; BP diastolic 50–65
[2017-06-14 05:25] LABS: INTER. NORMALIZED RATIO 1.5; PROTHROMBIN TIME 16.7 SEC (10.2-12.9)
[2017-06-14 08:50] LABS: ANION GAP 8 MEQ/L (2-14); CHLORIDE 99 MEQ/L (99-109); GFR ESTIMATE (CALCULATED) > 59 mL/min/ (58.99-99999); POTASSIUM 4.3 MEQ/L (3.7-5.4); SAMPLE HEMOLYSIS CHECK 0; SAMPLE ICTERIC CHECK 0; SAMPLE LIPEMIA CHECK 0; SODIUM 137 MEQ/L (136-147); UREA NITROGEN (BUN) 11 mg/dL (9-23)
[2017-06-14 08:52] LABS: GLUCOSE 168 mg/dL (70-99)
[2017-06-14 11:08] LABS: HEMATOCRIT 30.8 % (38.0-50.0); MCH 23.1 PG (29.0-34.0); MCHC 29.9 G/DL (30.0-36.0); MCV 77.2 FL (86-99); MEAN PLAT.VOLUME 9.1 uM^3 (9.0-12.4); PLATELET COUNT 275 K/uL (156-360); RBC DIS.WIDTH-CV 20.3 % (11.8-14.6); RBC DIS.WIDTH-SD 57.3 % (39-53); RED BLOOD COUNT 3.99 M/uL (4.00-5.50)
[2017-06-15 03:53] VITALS: BP 102/58
[2017-06-15 05:36] LABS: INTER. NORMALIZED RATIO 1.7
[2017-06-15 06:00] LABS: ANION GAP 5 MEQ/L (2-14); CHLORIDE 99 MEQ/L (99-109); GFR ESTIMATE (CALCULATED) > 59 mL/min/ (58.99-99999); GLUCOSE 133 mg/dL (70-99); POTASSIUM 4.5 MEQ/L (3.7-5.4); SAMPLE HEMOLYSIS CHECK 0; SAMPLE ICTERIC CHECK 0; SAMPLE LIPEMIA CHECK 0; SODIUM 137 MEQ/L (136-147); UREA NITROGEN (BUN) 13 mg/dL (9-23)
[2017-06-15 09:03] VITALS: BP 94/62
[2017-06-15 14:13] VITALS: BP 99/53
[2017-06-15 17:01] VITALS: BP 119/56
[2017-06-15 20:00] VITALS: BP 122/80
[2017-06-16 00:22] VITALS: BP 115/56
[2017-06-16 05:39] VITALS: BP 97/52
[2017-06-16 06:43] LABS: PROTHROMBIN TIME 22.7 SEC (10.2-12.9)
[2017-06-16 07:36] VITALS: BP 123/62
[2017-06-16 11:22] VITALS: BP 96/62
[2017-06-16] MEDS ORDERED: CEPHALEXIN500 MG PO (11:49)
== END 2017-06-16 13:26 | DRG 291 ==
LOC: EME 22:50 → EDOF 06-12 02:05 → ENRESERV 06-12 02:16 → 5WEST 06-12 04:15
PROVIDERS: Emergency Medicine; Hospitalist; Physician Assistant Medical
DX: I13.0 Hypertensive heart and chronic kidney disease with heart failure and stage 1 through stage 4 chronic kidney disease, or unspecified chronic kidney disease (principal); I50.33 Acute on chronic diastolic (congestive) heart failure; D64.9 Anemia, unspecified; E11.22 Type 2 diabetes mellitus with diabetic chronic kidney disease; N18.9 Chronic kidney disease, unspecified; L03.115 Cellulitis of right lower limb; L03.116 Cellulitis of left lower limb; E11.40 Type 2 diabetes mellitus with diabetic neuropathy, unspecified; J44.1 Chronic obstructive pulmonary disease with (acute) exacerbation; E78.5 Hyperlipidemia, unspecified; G47.33 Obstructive sleep apnea (adult) (pediatric); I25.10 Atherosclerotic heart disease of native coronary artery without angina pectoris; I49.3 Ventricular premature depolarization; I48.91 Unspecified atrial fibrillation; I48.92 Unspecified atrial flutter; I87.2 Venous insufficiency (chronic) (peripheral); I87.8 Other specified disorders of veins; I89.0 Lymphedema, not elsewhere classified; K21.9 Gastro-esophageal reflux disease without esophagitis; G43.909 Migraine, unspecified, not intractable, without status migrainosus; G89.29 Other chronic pain; M54.5 Low back pain; M19.90 Unspecified osteoarthritis, unspecified site; R00.1 Bradycardia, unspecified; R26.2 Difficulty in walking, not elsewhere classified; E66.01 Morbid (severe) obesity due to excess calories; Z68.43 Body mass index [BMI] 50.0-59.9, adult; I25.2 Old myocardial infarction; F17.210 Nicotine dependence, cigarettes, uncomplicated; Z79.01 Long term (current) use of anticoagulants; Z79.4 Long term (current) use of insulin; Z82.49 Family history of ischemic heart disease and other diseases of the circulatory system; Z83.3 Family history of diabetes mellitus; Z95.1 Presence of aortocoronary bypass graft
CPT/HCPCS: 71020; 73590; 80048; 81003; 82607; 82746; 82948; 83540; 83605; 83880; 84466; 84484; 85025; 85027; 85610; 85730; 87040; 93005; 94640; 94640 76; 94799; 97530 GO; 97530 GP; 99202; 99281; 99285; J0690; J1940

== ENCOUNTER 2017-07-12 21:13 | Inpatient (IN) | payer OTHER ==
[~2017-07-12] VITALS: Ht 188 cm; Wt 114.5 kg
[~2017-07-12 21:13] MED LIST changes: +AMBIEN10 MG PO; +CEPHALEXIN500 MG PO; +GLUCOTROL10 MG PO
[2017-07-12 21:48] LABS: HEMATOCRIT 33.4 % (38.0-50.0); HEMOGLOBIN 10.3 G/DL (12.5-16.6); MCH 24.4 PG (29.0-34.0); MCHC 30.8 G/DL (30.0-36.0); MCV 79.1 FL (86-99); RBC DIS.WIDTH-CV 20.7 % (11.8-14.6); RBC DIS.WIDTH-SD 59.1 % (39-53); RED BLOOD COUNT 4.22 M/uL (4.00-5.50); WHITE BLOOD COUNT 8.3 K/uL (4.1-10.2)
[2017-07-12 21:54] LABS: CHLORIDE 107 mEq/L (99-109); POTASSIUM 4.6 mEq/L (3.7-5.4); SODIUM 140 mEq/L (136-147)
[2017-07-12 21:55] LABS: GLUCOSE 261 mg/dL (70-99)
[2017-07-12 21:59] LABS: CREATININE 0.8 mg/dL (0.6-1.3); GFR ESTIMATE (CALCULATED) > 59 mL/min/ (58.99-99999)
[2017-07-12 22:00] LABS: UREA NITROGEN (BUN) 14 mg/dL (9-23)
[2017-07-12 22:06] LABS: TROP-I INTERPRETATION POSITIVE
[2017-07-12 22:09] LABS: TROPONIN-I 0.78 ng/mL (0.0-0.30)
[2017-07-12 22:23] LABS: PLAT.SUFFICIENCY ADEQUATE
[2017-07-12 22:25] LABS: PLATELET COUNT 178 K/uL (156-360)
[2017-07-12 22:37] LABS: INTER. NORMALIZED RATIO 1.7
[2017-07-12] MEDS ORDERED: GLUCOTROL10 MG PO ×3 (23:01→23:02)
[2017-07-12] MEDS ORDERED: NICODERM CQ1 EAC2 TD (23:03)
[2017-07-13 00:56] LABS: PTT 31.6 SEC (25-37)
[2017-07-13 02:41] LABS: INTER. NORMALIZED RATIO 1.8
[2017-07-13 03:08] LABS: HDL CHOLESTEROL 21 MG/DL (Desirable>=40); LDL CHOLESTEROL 49 mg/dL (Desirable<100); NON-HDL CHOLESTEROL 72 mg/dL (Desirable<160); TOTAL CHOLESTEROL 93 mg/dL (Desirable<200); TRIGLYCERIDES 115 MG/DL (Normal: <150)
[2017-07-13 06:58] LABS: TROP-I INTERPRETATION POSITIVE
[2017-07-13 07:06] LABS: TROPONIN-I 1.01 ng/mL (0.0-0.30)
[2017-07-13 15:13] LABS: TROP-I INTERPRETATION POSITIVE; TROPONIN-I 0.76 ng/mL (0.0-0.30)
[2017-07-13 16:40] VITALS: BP 105/55
[2017-07-13 20:00] VITALS: BP 116/62
[2017-07-13 23:55] VITALS: BP 115/58
[2017-07-14 04:00] VITALS: BP 119/65
[2017-07-14 08:21] VITALS: BP 123/59
[2017-07-14 10:00] LABS: INTER. NORMALIZED RATIO 1.4
[2017-07-14 12:40] VITALS: BP 110/64
[2017-07-14 16:35] VITALS: BP 129/70
[2017-07-14 20:00] VITALS: BP 115/56
[2017-07-14 23:55] VITALS: BP 91/46
[2017-07-15 04:00] VITALS: BP 115/73
[2017-07-15 06:05] LABS: HEMATOCRIT 30.6 % (38.0-50.0); HEMOGLOBIN 9.5 G/DL (12.5-16.6); MCH 24.6 PG (29.0-34.0); MCV 79.3 FL (86-99); PLATELET COUNT 166 K/uL (156-360); RBC DIS.WIDTH-SD 57.8 % (39-53); RED BLOOD COUNT 3.86 M/uL (4.00-5.50); WHITE BLOOD COUNT 6.4 K/uL (4.1-10.2)
[2017-07-15 06:22] LABS: INTER. NORMALIZED RATIO 1.3
[2017-07-15 06:29] LABS: CHLORIDE 104 MEQ/L (99-109); CREATININE 0.6 MG/DL (0.6-1.3); GFR ESTIMATE (CALCULATED) > 59 mL/min/ (58.99-99999); GLUCOSE 162 mg/dL (70-99); MAGNESIUM 1.5 mg/dl (1.3-2.7); POTASSIUM 4.1 MEQ/L (3.7-5.4); SODIUM 140 MEQ/L (136-147); UREA NITROGEN (BUN) 13 mg/dL (9-23)
[2017-07-15 08:40] VITALS: BP 103/59
[2017-07-15 12:08] VITALS: BP 109/49
[2017-07-15 16:50] VITALS: BP 118/56
[2017-07-15 19:45] VITALS: BP 118/71
[2017-07-15 23:40] VITALS: BP 128/61
[2017-07-16 03:59] VITALS: BP 116/58
[2017-07-16 06:28] LABS: INTER. NORMALIZED RATIO 1.5
[2017-07-16 06:29] LABS: BASOPHIL (%) 0.4 % (0-1); EOSINOPHIL (%) 2.7 % (0-5); EOSINOPHIL COUNT 0.2 K/uL (0-0.3); HEMATOCRIT 30.6 % (38.0-50.0); HEMOGLOBIN 9.6 G/DL (12.5-16.6); IMMATURE GRANULOCYTE (%) 0.4 % (0.0-0.7); LYMPHOCYTE (%) 24.1 % (15-42); LYMPHOCYTE COUNT 1.7 K/uL (1.0-2.8); MCH 24.7 PG (29.0-34.0); MCHC 31.4 G/DL (30.0-36.0); MCV 78.9 FL (86-99); MONOCYTE (%) 4.5 % (3-12); MONOCYTE COUNT 0.3 K/uL (0-0.8); NEUTROPHIL (%) 67.9 % (45-76); NEUTROPHIL COUNT 4.8 K/uL (1.8-6.4); PLATELET COUNT 180 K/uL (156-360); RBC DIS.WIDTH-CV 19.7 % (11.8-14.6); RBC DIS.WIDTH-SD 56.5 % (39-53); RED BLOOD COUNT 3.88 M/uL (4.00-5.50); WHITE BLOOD COUNT 7.1 K/uL (4.1-10.2)
[2017-07-16 06:48] LABS: CHLORIDE 101 MEQ/L (99-109); CREATININE 0.6 MG/DL (0.6-1.3); GFR ESTIMATE (CALCULATED) > 59 mL/min/ (58.99-99999); GLUCOSE 176 mg/dL (70-99); POTASSIUM 3.9 MEQ/L (3.7-5.4); SODIUM 137 MEQ/L (136-147); UREA NITROGEN (BUN) 9 mg/dL (9-23)
[2017-07-16 08:09] VITALS: BP 121/59
[2017-07-16 09:00] VITALS: BP 121/59
[2017-07-16] MEDS ORDERED: NITROSTAT0.4 MG SL (11:06)
[2017-07-16] MEDS ORDERED: IMDUR30 MG PO (11:06)
[2017-07-16] MEDS ORDERED: CLOPIDOGREL75 MG PO (11:06)
[2017-07-16] MEDS ORDERED: ATORVASTATIN CA40 MG PO (11:06)
[2017-07-16] MEDS ORDERED: METOPROLOL TART25 MG PO (13:28)
== END 2017-07-16 13:27 | disposition home health service (06) | DRG 281 ==
LOC: EME 21:13 → EDOF 07-13 00:26 → ENRESERV 07-13 00:31 → 4EAST 07-13 16:27
PROVIDERS: Emergency Medicine; Internal Medicine; Student in an Organized Health Care Education/Training Program
DX: I21.4 Non-ST elevation (NSTEMI) myocardial infarction (principal); G45.8 Other transient cerebral ischemic attacks and related syndromes; E11.51 Type 2 diabetes mellitus with diabetic peripheral angiopathy without gangrene; J44.9 Chronic obstructive pulmonary disease, unspecified; I48.0 Paroxysmal atrial fibrillation; I70.8 Atherosclerosis of other arteries; I25.10 Atherosclerotic heart disease of native coronary artery without angina pectoris; I13.0 Hypertensive heart and chronic kidney disease with heart failure and stage 1 through stage 4 chronic kidney disease, or unspecified chronic kidney disease; I50.32 Chronic diastolic (congestive) heart failure; N18.9 Chronic kidney disease, unspecified; E11.22 Type 2 diabetes mellitus with diabetic chronic kidney disease; I48.92 Unspecified atrial flutter; I42.9 Cardiomyopathy, unspecified; E78.5 Hyperlipidemia, unspecified; G47.33 Obstructive sleep apnea (adult) (pediatric); I87.8 Other specified disorders of veins; D64.9 Anemia, unspecified; K21.9 Gastro-esophageal reflux disease without esophagitis; M54.5 Low back pain; G89.29 Other chronic pain; M19.90 Unspecified osteoarthritis, unspecified site; G43.909 Migraine, unspecified, not intractable, without status migrainosus; E66.9 Obesity, unspecified; Z68.32 Body mass index [BMI] 32.0-32.9, adult; I25.2 Old myocardial infarction; N40.0 Benign prostatic hyperplasia without lower urinary tract symptoms; F17.200 Nicotine dependence, unspecified, uncomplicated; Z95.1 Presence of aortocoronary bypass graft; Z79.4 Long term (current) use of insulin; Z79.01 Long term (current) use of anticoagulants; Z79.82 Long term (current) use of aspirin; Z82.49 Family history of ischemic heart disease and other diseases of the circulatory system; Z83.3 Family history of diabetes mellitus
CPT/HCPCS: 71046; 71275; 80048; 80061; 82948; 83036; 83735; 83880; 84484; 85025; 85027; 85610; 85730; 93005; 94640; 94640 76; 94799; 99202; 99281; 99285; C1760; C1769; C1887; C1894; J1644; J1815; J2250; J2270; J3010; J7030

== ENCOUNTER 2017-07-28 17:58 | Observation (INO) | payer OTHER ==
[~2017-07-28] VITALS: Ht 185.4 cm; Wt 163.2 kg
[~2017-07-28 17:58] MED LIST changes: +ATORVASTATIN CA40 MG PO; +CLOPIDOGREL75 MG PO; +IMDUR30 MG PO; +NICODERM CQ1 EAC2 TD; +NITROSTAT0.4 MG SL
[2017-07-28 18:37] LABS: HEMOGLOBIN 9.8 G/DL (12.5-16.6); MCHC 31.6 G/DL (30.0-36.0); MCV 79.1 FL (86-99); RBC DIS.WIDTH-CV 18.9 % (11.8-14.6); RBC DIS.WIDTH-SD 54.2 % (39-53); RED BLOOD COUNT 3.92 M/uL (4.00-5.50); WHITE BLOOD COUNT 7.4 K/uL (4.1-10.2)
[2017-07-28 18:43] LABS: INTER. NORMALIZED RATIO 2.1
[2017-07-28 18:45] LABS: CHLORIDE 102 mEq/L (99-109); POTASSIUM 3.8 mEq/L (3.7-5.4); SODIUM 136 mEq/L (136-147)
[2017-07-28 18:47] LABS: GLUCOSE 129 mg/dL (70-99)
[2017-07-28 18:51] LABS: CREATININE 0.8 mg/dL (0.6-1.3); GFR ESTIMATE (CALCULATED) > 59 mL/min/ (58.99-99999)
[2017-07-28 18:52] LABS: UREA NITROGEN (BUN) 10 mg/dL (9-23)
[2017-07-28 18:58] LABS: TROP-I INTERPRETATION NEGATIVE; TROPONIN-I 0.03 ng/mL (0.0-0.30)
[2017-07-28 20:32] LABS: PLATELET COUNT 247 K/uL (156-360)
[2017-07-29 00:37] LABS: TROP-I INTERPRETATION NEGATIVE; TROPONIN-I 0.02 ng/mL (0.0-0.30)
[2017-07-29 07:02] LABS: TROP-I INTERPRETATION NEGATIVE; TROPONIN-I 0.01 ng/mL (0.0-0.30)
[2017-07-29 12:41] LABS: INTER. NORMALIZED RATIO 1.8
[2017-07-29 14:10] VITALS: BP 118/60
[2017-07-29 15:49] VITALS: BP 132/61
[2017-07-29 19:03] VITALS: BP 122/58
[2017-07-29 21:24] LABS: HDL CHOLESTEROL 16 MG/DL (Desirable>=40); LDL CHOLESTEROL 75 mg/dL (Desirable<100); MAGNESIUM 1.5 mg/dl (1.3-2.7); NON-HDL CHOLESTEROL 96 mg/dL (Desirable<160); TOTAL CHOLESTEROL 112 mg/dL (Desirable<200); TRIGLYCERIDES 103 MG/DL (Normal: <150)
[2017-07-30 00:12] VITALS: BP 120/53
[2017-07-30 03:35] VITALS: BP 94/50
[2017-07-30 05:58] LABS: INTER. NORMALIZED RATIO 2.2
[2017-07-30 08:00] VITALS: BP 102/52
[2017-07-30] MEDS ORDERED: IMDUR30 MG PO (11:16)
[2017-07-30 12:26] VITALS: BP 131/62
== END 2017-07-30 16:01 | disposition home or self-care (01) ==
LOC: EME 17:58 → EDOF 20:25 → 5WEST 20:25 → EDOF 20:25 → ENRESERV 20:28 → CANRESERV 20:28 → ENRESERV 20:30 → EDOF 20:59 → ENRESERV 21:21 → 5WEST 07-29 13:36
PROVIDERS: Hospitalist; Internal Medicine Nephrology; Nurse Practitioner Family; Physician Assistant
DX: I25.119 Atherosclerotic heart disease of native coronary artery with unspecified angina pectoris (principal); Z95.1 Presence of aortocoronary bypass graft; I73.9 Peripheral vascular disease, unspecified; I13.0 Hypertensive heart and chronic kidney disease with heart failure and stage 1 through stage 4 chronic kidney disease, or unspecified chronic kidney disease; I50.42 Chronic combined systolic (congestive) and diastolic (congestive) heart failure; N18.9 Chronic kidney disease, unspecified; E78.5 Hyperlipidemia, unspecified; F17.210 Nicotine dependence, cigarettes, uncomplicated; I48.0 Paroxysmal atrial fibrillation; I48.92 Unspecified atrial flutter; I42.0 Dilated cardiomyopathy; G89.29 Other chronic pain; J44.9 Chronic obstructive pulmonary disease, unspecified; E11.22 Type 2 diabetes mellitus with diabetic chronic kidney disease; E66.01 Morbid (severe) obesity due to excess calories; Z68.42 Body mass index [BMI] 45.0-49.9, adult; Z82.49 Family history of ischemic heart disease and other diseases of the circulatory system; Z83.3 Family history of diabetes mellitus; I25.2 Old myocardial infarction; G47.33 Obstructive sleep apnea (adult) (pediatric); I87.8 Other specified disorders of veins; M19.90 Unspecified osteoarthritis, unspecified site; Z87.19 Personal history of other diseases of the digestive system; F10.11 Alcohol abuse, in remission; Z79.4 Long term (current) use of insulin; Z79.01 Long term (current) use of anticoagulants; Z88.5 Allergy status to narcotic agent; Z88.6 Allergy status to analgesic agent; Z88.8 Allergy status to other drugs, medicaments and biological substances
CPT/HCPCS: 70450; 71045; 80048; 80053; 80061; 82948; 83735; 83880; 84484; 85027; 85610; 85730; 93005; 94640; 94640 76; 99202; 99281; 99285; G0378; J2270; J3010

== ENCOUNTER 2017-07-30 19:38 | Emergency (ER) | payer OTHER ==
[~2017-07-30] VITALS: Ht 185.4 cm; Wt 166.8 kg
[2017-07-30 21:52] LABS: BASOPHIL (%) 0.3 % (0-1); EOSINOPHIL (%) 2.1 % (0-5); EOSINOPHIL COUNT 0.1 K/uL (0-0.3); HEMATOCRIT 32.9 % (38.0-50.0); HEMOGLOBIN 10.4 G/DL (12.5-16.6); IMMATURE GRANULOCYTE (%) 0.3 % (0.0-0.7); LYMPHOCYTE (%) 22.7 % (15-42); LYMPHOCYTE COUNT 1.3 K/uL (1.0-2.8); MCH 25.1 PG (29.0-34.0); MCHC 31.6 G/DL (30.0-36.0); MCV 79.3 FL (86-99); MONOCYTE (%) 4.9 % (3-12); MONOCYTE COUNT 0.3 K/uL (0-0.8); NEUTROPHIL (%) 69.7 % (45-76); PLATELET COUNT 223 K/uL (156-360); RBC DIS.WIDTH-CV 18.5 % (11.8-14.6); RBC DIS.WIDTH-SD 53.3 % (39-53); RED BLOOD COUNT 4.15 M/uL (4.00-5.50); WHITE BLOOD COUNT 5.8 K/uL (4.1-10.2)
[2017-07-30 22:01] LABS: CHLORIDE 103 mEq/L (99-109); POTASSIUM 3.7 mEq/L (3.7-5.4); SODIUM 138 mEq/L (136-147)
[2017-07-30 22:03] LABS: GLUCOSE 148 mg/dL (70-99)
[2017-07-30 22:06] LABS: CREATININE 0.8 mg/dL (0.6-1.3); GFR ESTIMATE (CALCULATED) > 59 mL/min/ (58.99-99999)
[2017-07-30 22:07] LABS: UREA NITROGEN (BUN) 8 mg/dL (9-23)
[2017-07-30 22:13] LABS: TROP-I INTERPRETATION NEGATIVE; TROPONIN-I 0.01 ng/mL (0.0-0.30)
[2017-07-31 00:19] LABS: APPEARANCE CLEAR ((CLEAR)); BILIRUBIN NEGATIVE; BLOOD SMALL; COLOR YELLOW ((YELLOW)); GLUCOSE (STRIP) NEGATIVE; KETONES NEGATIVE; LEUKOCYTES NEGATIVE; NITRITE NEGATIVE; PROTEIN (STRIP) 100; SPECIFIC GRAVITY 1.013 (1.000-1.030)
[2017-07-31 00:25] LABS: BACTERIA RARE /HPF; EPITHELIAL CELLS RARE /HPF; MUCUS TRACE /LPF; UCUL ADDED? NO; WHITE BLOOD CELLS 0-5 /HPF (0-5)
[2017-07-31 01:54] LABS: TROP-I INTERPRETATION NEGATIVE; TROPONIN-I 0.01 ng/mL (0.0-0.30)
[2017-07-31 09:01] VITALS: BP 131/66
== END 2017-07-31 08:40 | disposition short-term general hospital (02) ==
LOC: EME 19:38
PROVIDERS: Emergency Medicine
DX: R42 Dizziness and giddiness (principal); E66.01 Morbid (severe) obesity due to excess calories; R26.81 Unsteadiness on feet; I48.92 Unspecified atrial flutter; R00.0 Tachycardia, unspecified; R94.31 Abnormal electrocardiogram [ECG] [EKG]; E11.9 Type 2 diabetes mellitus without complications; K21.9 Gastro-esophageal reflux disease without esophagitis; J44.9 Chronic obstructive pulmonary disease, unspecified; I10 Essential (primary) hypertension; E78.5 Hyperlipidemia, unspecified; I25.2 Old myocardial infarction; F17.200 Nicotine dependence, unspecified, uncomplicated; Z79.01 Long term (current) use of anticoagulants; Z79.4 Long term (current) use of insulin; Z79.84 Long term (current) use of oral hypoglycemic drugs; Z95.1 Presence of aortocoronary bypass graft; Z85.9 Personal history of malignant neoplasm, unspecified; Z88.5 Allergy status to narcotic agent; Z88.6 Allergy status to analgesic agent
CPT/HCPCS: 70450; 71045; 72125; 80048; 81003; 84484; 85025; 93005; 99281; 99285

== ENCOUNTER 2018-01-06 23:19 | Emergency (ER) | payer OTHER ==
[~2018-01-06] VITALS: Ht 185.4 cm; Wt 156.9 kg
[2018-01-07] MEDS ORDERED: PERCOCET 5/31 TABLET PO (01:18)
[2018-01-07 01:26] VITALS: BP 124/71
== END 2018-01-07 01:31 | disposition home or self-care (01) ==
LOC: EME → EDBD 23:19 → EME 01-07 01:31
DX: S80.01XA Contusion of right knee, initial encounter (principal); S50.312A Abrasion of left elbow, initial encounter; W01.0XXA Fall on same level from slipping, tripping and stumbling without subsequent striking against object, initial encounter; M25.761 Osteophyte, right knee; I11.0 Hypertensive heart disease with heart failure; I50.9 Heart failure, unspecified; E78.5 Hyperlipidemia, unspecified; I25.2 Old myocardial infarction; J44.9 Chronic obstructive pulmonary disease, unspecified; E11.9 Type 2 diabetes mellitus without complications; Z79.4 Long term (current) use of insulin; Z95.1 Presence of aortocoronary bypass graft; Z79.01 Long term (current) use of anticoagulants; F17.200 Nicotine dependence, unspecified, uncomplicated
CPT/HCPCS: 73564; 99281; 99284

== ENCOUNTER 2018-01-16 17:16 | Observation (INO) | payer OTHER ==
[~2018-01-16] VITALS: Ht 185.4 cm; Wt 159.0 kg
[2018-01-16 18:50] LABS: BASOPHIL (%) 0.3 % (0-1); EOSINOPHIL COUNT 0.1 K/uL (0-0.3); HEMATOCRIT 29.5 % (38.0-50.0); HEMOGLOBIN 9.6 G/DL (12.5-16.6); IMMATURE GRANULOCYTE (%) 0.5 % (0.0-0.7); LYMPHOCYTE (%) 17.8 % (15-42); LYMPHOCYTE COUNT 1.6 K/uL (1.0-2.8); MCH 25.9 PG (29.0-34.0); MCHC 32.5 G/DL (30.0-36.0); MCV 79.7 FL (86-99); MONOCYTE (%) 5.8 % (3-12); MONOCYTE COUNT 0.5 K/uL (0-0.8); NEUTROPHIL (%) 74.6 % (45-76); NEUTROPHIL COUNT 6.6 K/uL (1.8-6.4); PLATELET COUNT 209 K/uL (156-360); RBC DIS.WIDTH-CV 18.2 % (11.8-14.6); RBC DIS.WIDTH-SD 52.8 % (39-53); WHITE BLOOD COUNT 8.8 K/uL (4.1-10.2)
[2018-01-16 18:59] LABS: ALBUMIN 3.3 g/dL (3.2-4.8); CHLORIDE 103 mEq/L (99-109); POTASSIUM 4.1 mEq/L (3.7-5.4); SODIUM 139 mEq/L (136-147)
[2018-01-16 19:00] LABS: MAGNESIUM 1.3 mg/dL (1.3-2.7)
[2018-01-16 19:01] LABS: GLUCOSE 74 mg/dL (70-99); TOTAL PROTEIN 6.5 g/dL (6.4-8.3)
[2018-01-16 19:03] LABS: TOTAL BILIRUBIN 0.7 mg/dL (0.0-1.0)
[2018-01-16 19:05] LABS: ALKALINE PHOSPHATASE 83 IU/L (3-129); CREATININE 0.8 mg/dL (0.6-1.3); GFR ESTIMATE (CALCULATED) > 59 mL/min/ (58.99-99999)
[2018-01-16 19:06] LABS: UREA NITROGEN (BUN) 13 mg/dL (9-23)
[2018-01-16 19:07] LABS: AST (GOT) 10 IU/L (2-34)
[2018-01-16 19:08] LABS: ALT (GPT) 4 IU/L (3-49)
[2018-01-16 19:14] LABS: TROP-I INTERPRETATION NEGATIVE; TROPONIN-I 0.02 ng/mL (0.0-0.30)
[2018-01-16 23:42] LABS: INTER. NORMALIZED RATIO 3.4
[2018-01-17 03:25] LABS: HEMATOCRIT 28.2 % (38.0-50.0); HEMOGLOBIN 9.4 G/DL (12.5-16.6); MCV 79.9 FL (86-99)
[2018-01-17] MEDS ORDERED: GLIPIZIDE5 MG PO (04:03)
[2018-01-17] MEDS ORDERED: COUMADIN6 MG PO ×2 (04:08→04:09)
[2018-01-17 06:36] LABS: INTER. NORMALIZED RATIO 2.8
[2018-01-17 08:12] VITALS: BP 123/60
[2018-01-17 12:10] VITALS: BP 125/60
[2018-01-17] MEDS ORDERED: STOOL SOFTENER100 MG PO (14:41)
[2018-01-17 15:01] VITALS: BP 109/58
[2018-01-17 19:32] VITALS: BP 149/69
[2018-01-18] VITALS: BP 140/67
[2018-01-18 04:07] VITALS: BP 101/62
[2018-01-18 05:13] LABS: BASOPHIL (%) 0.4 % (0-1); EOSINOPHIL (%) 2.9 % (0-5); EOSINOPHIL COUNT 0.2 K/uL (0-0.3); HEMATOCRIT 27.7 % (38.0-50.0); HEMOGLOBIN 8.8 G/DL (12.5-16.6); IMMATURE GRANULOCYTE (%) 0.5 % (0.0-0.7); LYMPHOCYTE (%) 21.9 % (15-42); LYMPHOCYTE COUNT 1.2 K/uL (1.0-2.8); MCH 25.7 PG (29.0-34.0); MCHC 31.8 G/DL (30.0-36.0); MONOCYTE (%) 6.4 % (3-12); MONOCYTE COUNT 0.4 K/uL (0-0.8); NEUTROPHIL (%) 67.9 % (45-76); NEUTROPHIL COUNT 3.7 K/uL (1.8-6.4); PLATELET COUNT 182 K/uL (156-360); RBC DIS.WIDTH-SD 53.1 % (39-53); RED BLOOD COUNT 3.42 M/uL (4.00-5.50); WHITE BLOOD COUNT 5.5 K/uL (4.1-10.2)
[2018-01-18 05:37] LABS: INTER. NORMALIZED RATIO 2.2
[2018-01-18 06:07] LABS: ALBUMIN 2.9 G/DL (3.2-4.8); ALKALINE PHOSPHATASE 62 IU/L (3-129); ALT (GPT) 5 IU/L (3-49); AST (GOT) 8 IU/L (2-34); CHLORIDE 103 MEQ/L (99-109); CREATININE 0.7 MG/DL (0.6-1.3); DIRECT BILIRUBIN 0.1 mg/dL (0.0-0.3); GFR ESTIMATE (CALCULATED) > 59 mL/min/ (58.99-99999); POTASSIUM 3.7 MEQ/L (3.7-5.4); SODIUM 138 MEQ/L (136-147); TOTAL BILIRUBIN 0.4 MG/DL (0.0-1.0); TOTAL PROTEIN 5.8 G/DL (6.4-8.3); UREA NITROGEN (BUN) 13 mg/dL (9-23)
[2018-01-18 06:13] LABS: GLUCOSE 148 mg/dL (70-99)
[2018-01-18 07:51] VITALS: BP 153/69
[2018-01-18 12:09] VITALS: BP 126/61
[2018-01-18 15:39] VITALS: BP 140/67
[2018-01-18 23:31] VITALS: BP 118/74
[2018-01-19 05:47] LABS: INTER. NORMALIZED RATIO 2.4
[2018-01-19 08:07] VITALS: BP 133/60
[2018-01-19 11:27] VITALS: BP 142/75
[2018-01-19 14:28] LABS: HEMATOCRIT 27.5 % (38.0-50.0); HEMOGLOBIN 8.9 G/DL (12.5-16.6); MCH 26.1 PG (29.0-34.0); MCHC 32.4 G/DL (30.0-36.0); MCV 80.6 FL (86-99); PLATELET COUNT 204 K/uL (156-360); RBC DIS.WIDTH-CV 17.7 % (11.8-14.6); RBC DIS.WIDTH-SD 52.3 % (39-53); RED BLOOD COUNT 3.41 M/uL (4.00-5.50); WHITE BLOOD COUNT 6.2 K/uL (4.1-10.2)
[2018-01-19 19:45] VITALS: BP 106/51
[2018-01-20 05:06] VITALS: BP 115/61
[2018-01-20 05:48] LABS: INTER. NORMALIZED RATIO 2.4
[2018-01-20 07:22] VITALS: BP 105/69
[2018-01-20 11:27] VITALS: BP 146/56
[2018-01-20 17:05] VITALS: BP 143/65
[2018-01-20 19:45] VITALS: BP 116/54
[2018-01-21 04:00] VITALS: BP 120/62
[2018-01-21 05:58] LABS: INTER. NORMALIZED RATIO 2.5
[2018-01-21 07:18] VITALS: BP 125/56
[2018-01-21 12:09] VITALS: BP 124/54
== END 2018-01-21 16:32 ==
LOC: EME 17:16 → EDOF 01-17 03:37 → 4SOUTH 01-17 03:37 → EDOF 01-17 03:37 → 4SOUTH 01-17 03:37 → ENRESERV 01-17 03:38 → 4SOUTH 01-17 05:05
PROVIDERS: Emergency Medicine; Hospitalist; Internal Medicine; Nurse Practitioner Adult Health
DX: R53.1 Weakness (principal); S70.02XA Contusion of left hip, initial encounter; S30.0XXA Contusion of lower back and pelvis, initial encounter; M70.62 Trochanteric bursitis, left hip; S81.801A Unspecified open wound, right lower leg, initial encounter; I48.2 Chronic atrial fibrillation; I87.8 Other specified disorders of veins; R21 Rash and other nonspecific skin eruption; E11.51 Type 2 diabetes mellitus with diabetic peripheral angiopathy without gangrene; E66.01 Morbid (severe) obesity due to excess calories; I25.10 Atherosclerotic heart disease of native coronary artery without angina pectoris; I13.0 Hypertensive heart and chronic kidney disease with heart failure and stage 1 through stage 4 chronic kidney disease, or unspecified chronic kidney disease; E11.22 Type 2 diabetes mellitus with diabetic chronic kidney disease; I50.22 Chronic systolic (congestive) heart failure; N18.9 Chronic kidney disease, unspecified; G47.33 Obstructive sleep apnea (adult) (pediatric); E78.5 Hyperlipidemia, unspecified; I89.0 Lymphedema, not elsewhere classified; J44.9 Chronic obstructive pulmonary disease, unspecified; D64.9 Anemia, unspecified; K21.9 Gastro-esophageal reflux disease without esophagitis; G89.29 Other chronic pain; R26.89 Other abnormalities of gait and mobility; M17.11 Unilateral primary osteoarthritis, right knee; F17.210 Nicotine dependence, cigarettes, uncomplicated; Z82.49 Family history of ischemic heart disease and other diseases of the circulatory system; Z83.3 Family history of diabetes mellitus; Z88.5 Allergy status to narcotic agent; Z88.6 Allergy status to analgesic agent; W01.0XXA Fall on same level from slipping, tripping and stumbling without subsequent striking against object, initial encounter
CPT/HCPCS: 70450; 71045; 72132; 73721; 74177; 80048; 80053; 80076; 81003; 82948; 83735; 83880; 84484; 85014; 85018; 85025; 85027; 85610; 93005; 94640; 94799; 97530 GO; 97530 GP; 99281; 99285; G0378; G8978 GP CJ; G8979 GP CI; J1815; J7030

== ENCOUNTER 2018-02-14 20:22 | Inpatient (IN) | payer OTHER ==
[~2018-02-14] VITALS: Ht 185.4 cm; Wt 152.1 kg
[~2018-02-14 20:22] MED LIST changes: +COUMADIN1 MG PO; +COUMADIN10 MG PO; -ENALAPRIL MALEA20 MG PO; -PROAIR RESPICL90 MCG IH; +STOOL SOFTENER100 MG PO; +VENTOLIN HFA18 GM IH
[2018-02-14 21:07] LABS: CHLORIDE 101 mEq/L (99-109); POTASSIUM 4.3 mEq/L (3.7-5.4); SODIUM 137 mEq/L (136-147)
[2018-02-14 21:09] LABS: GLUCOSE 140 mg/dL (70-99)
[2018-02-14 21:10] LABS: HEMATOCRIT 34.9 % (38.0-50.0); HEMOGLOBIN 11.5 G/DL (12.5-16.6); MCH 26.6 PG (29.0-34.0); MCV 80.6 FL (86-99); PLATELET COUNT 296 K/uL (156-360); RBC DIS.WIDTH-CV 16.8 % (11.8-14.6); RBC DIS.WIDTH-SD 49.5 % (39-53); RED BLOOD COUNT 4.33 M/uL (4.00-5.50); WHITE BLOOD COUNT 9.9 K/uL (4.1-10.2)
[2018-02-14 21:13] LABS: CREATININE 0.9 mg/dL (0.6-1.3); GFR ESTIMATE (CALCULATED) > 59 mL/min/ (58.99-99999); UREA NITROGEN (BUN) 15 mg/dL (9-23)
[2018-02-14 21:19] LABS: TROP-I INTERPRETATION NEGATIVE; TROPONIN-I < 0.01 ng/mL (0.0-0.30)
[2018-02-14] MEDS ORDERED: BASAGLAR K100 UNIT/1 SC (23:56)
[2018-02-14] MEDS ORDERED: INCRUSE ELLI62.5 MCG IH (23:59)
[2018-02-14] MEDS ORDERED: FUROSEMIDE20 MG PO (23:59)
[2018-02-15] MEDS ORDERED: PLAVIX75 MG PO
[2018-02-15] MEDS ORDERED: IMDUR30 MG PO (00:02)
[2018-02-15] MEDS ORDERED: GLUCO BURST37.5 GM PO (00:05)
[2018-02-15] MEDS ORDERED: PERCOCET 5/31 TABLET PO (00:06)
[2018-02-15 02:13] LABS: INTER. NORMALIZED RATIO 3.4
[2018-02-15 02:29] LABS: TROP-I INTERPRETATION NEGATIVE; TROPONIN-I 0.02 ng/mL (0.0-0.30)
[2018-02-15 06:40] LABS: BASOPHIL (%) 0.4 % (0-1); EOSINOPHIL COUNT 0.2 K/uL (0-0.3); HEMATOCRIT 33.5 % (38.0-50.0); HEMOGLOBIN 10.9 G/DL (12.5-16.6); IMMATURE GRANULOCYTE (%) 0.2 % (0.0-0.7); LYMPHOCYTE (%) 23.6 % (15-42); LYMPHOCYTE COUNT 2.1 K/uL (1.0-2.8); MCH 26.5 PG (29.0-34.0); MCHC 32.5 G/DL (30.0-36.0); MCV 81.5 FL (86-99); MONOCYTE (%) 7.2 % (3-12); MONOCYTE COUNT 0.7 K/uL (0-0.8); NEUTROPHIL (%) 66.6 % (45-76); PLATELET COUNT 254 K/uL (156-360); RBC DIS.WIDTH-CV 16.9 % (11.8-14.6); RED BLOOD COUNT 4.11 M/uL (4.00-5.50); WHITE BLOOD COUNT 9.1 K/uL (4.1-10.2)
[2018-02-15 07:13] LABS: CHLORIDE 101 MEQ/L (99-109); POTASSIUM 4.3 MEQ/L (3.7-5.4); SODIUM 136 MEQ/L (136-147)
[2018-02-15 07:18] LABS: CREATININE 0.9 MG/DL (0.6-1.3); GFR ESTIMATE (CALCULATED) > 59 mL/min/ (58.99-99999); GLUCOSE 141 mg/dL (70-99); UREA NITROGEN (BUN) 18 mg/dL (9-23)
[2018-02-15 08:40] LABS: TROP-I INTERPRETATION NEGATIVE; TROPONIN-I 0.01 ng/mL (0.0-0.30)
[2018-02-15 15:00] VITALS: BP 145/70
[2018-02-15 18:52] VITALS: BP 153/67
[2018-02-16] VITALS (7 sets, daily range): BP systolic 118–155; BP diastolic 57–66
[2018-02-16 05:25] LABS: INTER. NORMALIZED RATIO 2.3
[2018-02-16 08:31] LABS: HEMATOCRIT 34.4 % (38.0-50.0); HEMOGLOBIN 11.1 G/DL (12.5-16.6); MCH 26.2 PG (29.0-34.0); MCHC 32.3 G/DL (30.0-36.0); MCV 81.1 FL (86-99); PLATELET COUNT 271 K/uL (156-360); RBC DIS.WIDTH-CV 16.9 % (11.8-14.6); RBC DIS.WIDTH-SD 49.1 % (39-53); RED BLOOD COUNT 4.24 M/uL (4.00-5.50); WHITE BLOOD COUNT 10.1 K/uL (4.1-10.2)
[2018-02-16 08:53] LABS: CHLORIDE 100 MEQ/L (99-109); CREATININE 0.8 MG/DL (0.6-1.3); GFR ESTIMATE (CALCULATED) > 59 mL/min/ (58.99-99999); GLUCOSE 154 mg/dL (70-99); POTASSIUM 4.2 MEQ/L (3.7-5.4); SODIUM 134 MEQ/L (136-147); UREA NITROGEN (BUN) 17 mg/dL (9-23)
[2018-02-16 08:56] LABS: TROP-I INTERPRETATION NEGATIVE; TROPONIN-I < 0.01 ng/mL (0.0-0.30)
[2018-02-16 14:15] LABS: TROP-I INTERPRETATION NEGATIVE; TROPONIN-I 0.02 ng/mL (0.0-0.30)
[2018-02-16 20:42] LABS: TROP-I INTERPRETATION NEGATIVE; TROPONIN-I < 0.01 ng/mL (0.0-0.30)
[2018-02-17 04:00] VITALS: BP 132/53
[2018-02-17 05:40] LABS: BASOPHIL (%) 0.4 % (0-1); EOSINOPHIL (%) 1.6 % (0-5); EOSINOPHIL COUNT 0.2 K/uL (0-0.3); HEMATOCRIT 31.4 % (38.0-50.0); HEMOGLOBIN 10.1 G/DL (12.5-16.6); IMMATURE GRANULOCYTE (%) 0.4 % (0.0-0.7); LYMPHOCYTE COUNT 2.1 K/uL (1.0-2.8); MCH 26.2 PG (29.0-34.0); MCHC 32.2 G/DL (30.0-36.0); MCV 81.3 FL (86-99); MONOCYTE (%) 5.8 % (3-12); MONOCYTE COUNT 0.6 K/uL (0-0.8); NEUTROPHIL (%) 70.8 % (45-76); NEUTROPHIL COUNT 7.2 K/uL (1.8-6.4); PLATELET COUNT 255 K/uL (156-360); RBC DIS.WIDTH-CV 16.9 % (11.8-14.6); RBC DIS.WIDTH-SD 49.2 % (39-53); RED BLOOD COUNT 3.86 M/uL (4.00-5.50); WHITE BLOOD COUNT 10.2 K/uL (4.1-10.2)
[2018-02-17 05:48] LABS: CHLORIDE 101 MEQ/L (99-109); CREATININE 0.8 MG/DL (0.6-1.3); GFR ESTIMATE (CALCULATED) > 59 mL/min/ (58.99-99999); GLUCOSE 156 mg/dL (70-99); POTASSIUM 4.4 MEQ/L (3.7-5.4); SODIUM 135 MEQ/L (136-147); UREA NITROGEN (BUN) 19 mg/dL (9-23)
[2018-02-17 07:04] VITALS: BP 163/68
[2018-02-17 11:51] VITALS: BP 137/63
[2018-02-17 15:36] VITALS: BP 130/68
[2018-02-17 19:57] VITALS: BP 155/64
[2018-02-17 22:36] VITALS: BP 155/66
[2018-02-18 03:05] VITALS: BP 135/63
[2018-02-18 07:51] VITALS: BP 154/65
[2018-02-18 11:38] VITALS: BP 135/65
[2018-02-18] MEDS ORDERED: TRAMADOL HCL50 MG PO (14:47)
[2018-02-18] MEDS ORDERED: PERCOCET 5/31 TABLET PO (14:47)
[2018-02-18 16:03] VITALS: BP 143/79
[2018-02-18 16:32] VITALS: BP 169/73
== END 2018-02-18 17:05 | DRG 292 ==
LOC: EME 20:22 → EDOF 02-15 00:33 → CANRESERV 02-15 00:35 → EDOF 02-15 03:33 → 4EAST 02-15 05:13 → EDOF 02-15 05:13 → ENRESERV 02-15 05:15 → 4EAST 02-15 14:52
PROVIDERS: Emergency Medicine; Hospitalist; Internal Medicine
DX: I11.0 Hypertensive heart disease with heart failure (principal); I50.23 Acute on chronic systolic (congestive) heart failure; J44.1 Chronic obstructive pulmonary disease with (acute) exacerbation; I48.92 Unspecified atrial flutter; E11.51 Type 2 diabetes mellitus with diabetic peripheral angiopathy without gangrene; R00.1 Bradycardia, unspecified; I48.0 Paroxysmal atrial fibrillation; E78.5 Hyperlipidemia, unspecified; I25.10 Atherosclerotic heart disease of native coronary artery without angina pectoris; I25.5 Ischemic cardiomyopathy; K21.9 Gastro-esophageal reflux disease without esophagitis; G47.33 Obstructive sleep apnea (adult) (pediatric); D64.9 Anemia, unspecified; N40.0 Benign prostatic hyperplasia without lower urinary tract symptoms; F17.210 Nicotine dependence, cigarettes, uncomplicated; E66.01 Morbid (severe) obesity due to excess calories; Z68.41 Body mass index [BMI] 40.0-44.9, adult; I25.2 Old myocardial infarction; Z95.1 Presence of aortocoronary bypass graft; Z95.5 Presence of coronary angioplasty implant and graft; Z79.01 Long term (current) use of anticoagulants; Z79.4 Long term (current) use of insulin; Z79.02 Long term (current) use of antithrombotics/antiplatelets; Z88.6 Allergy status to analgesic agent
CPT/HCPCS: 71046; 80048; 82948; 84484; 85025; 85027; 85610; 93005; 94640; 94760; 94799; 99281; 99285; J1815; J1940

== ENCOUNTER 2018-03-01 17:44 | Emergency (ER) | payer OTHER ==
[~2018-03-01] VITALS: Ht 185.4 cm; Wt 149.1 kg
[~2018-03-01 17:44] MED LIST changes: +BASAGLAR K100 UNIT/1 SC; +FUROSEMIDE20 MG PO; +GLUCO BURST37.5 GM PO; +INCRUSE ELLI62.5 MCG IH
[2018-03-01 18:21] LABS: HEMATOCRIT 32.5 % (38.0-50.0); HEMOGLOBIN 10.5 G/DL (12.5-16.6); MCH 26.3 PG (29.0-34.0); MCHC 32.3 G/DL (30.0-36.0); MCV 81.5 FL (86-99); PLATELET COUNT 235 K/uL (156-360); RBC DIS.WIDTH-CV 16.5 % (11.8-14.6); RED BLOOD COUNT 3.99 M/uL (4.00-5.50); WHITE BLOOD COUNT 7.4 K/uL (4.1-10.2)
[2018-03-01 18:28] LABS: INTER. NORMALIZED RATIO 2.2
[2018-03-01 18:44] LABS: CHLORIDE 104 mEq/L (99-109); POTASSIUM 5.2 mEq/L (3.7-5.4); SODIUM 140 mEq/L (136-147)
[2018-03-01 18:45] LABS: GLUCOSE 167 mg/dL (70-99)
[2018-03-01 18:49] LABS: CREATININE 0.9 mg/dL (0.6-1.3); GFR ESTIMATE (CALCULATED) > 59 mL/min/ (58.99-99999)
[2018-03-01 18:50] LABS: UREA NITROGEN (BUN) 16 mg/dL (9-23)
[2018-03-01 18:57] LABS: TROP-I INTERPRETATION NEGATIVE; TROPONIN-I < 0.01 ng/mL (0.0-0.30)
[2018-03-01 22:56] VITALS: BP 135/62
== END 2018-03-01 22:57 | disposition short-term general hospital (02) ==
LOC: EME 17:44
PROVIDERS: Emergency Medicine
DX: R07.9 Chest pain, unspecified (principal); R42 Dizziness and giddiness; I25.2 Old myocardial infarction; Z95.1 Presence of aortocoronary bypass graft; R06.02 Shortness of breath; J44.9 Chronic obstructive pulmonary disease, unspecified; I11.0 Hypertensive heart disease with heart failure; I50.9 Heart failure, unspecified; E78.5 Hyperlipidemia, unspecified; E11.9 Type 2 diabetes mellitus without complications; Z79.84 Long term (current) use of oral hypoglycemic drugs; Z79.01 Long term (current) use of anticoagulants; Z79.02 Long term (current) use of antithrombotics/antiplatelets; E66.9 Obesity, unspecified; Z68.41 Body mass index [BMI] 40.0-44.9, adult; F17.200 Nicotine dependence, unspecified, uncomplicated
CPT/HCPCS: 71046; 80048; 84484; 85027; 85610; 99281; 99285